=== PATIENT | female | born 1975 | race Caucasian/White ===

== ENCOUNTER 2017-08-26 11:10 | Emergency (ER) | payer OTHER ==
[~2017-08-26 11:10] MED LIST: ACYC200O6 PO; AMI25 PO; AZIT500T47 PO; BACDS PO; BUTA-303 PO; CAR350 PO; CARI250T10 PO; CEP500 PO; CEPH-1 PO; CEPH-13 PO; CEPH500C24 PO; CIP500 PO; CIT20 PO; CYCL-277 PO; CYCL30CA PO; DICL25TA9 PO; DOCU50CA8 PO; GAB300 PO; HYDR-319 PO; HYDR25CA83 PO; HYDR25SU34 RC; IBU800 PO; IBUP-1618; IBUP800T37 PO; LOR5 PO; LOR5/325 PO; PRE10 PO; PRE20 PO; PROM-110 PO; SULI200T84 PO
[2017-08-26 11:15] VITALS: BP 129/80
--- NOTE | 2017-08-26 11:21 | ER Report ---
History and Physical Time Seen By MD: 11:21 Hx. of Stated Complaint: PATIENT REPORTS THAT SHE IS HAVING NECK PAIN. SHE REPORTS A HISTORY OF CHRONIC NECK PAIN HPI/ROS CHIEF COMPLAINT: Migraine headache HISTORY OF PRESENT ILLNESS: This is a 42-year-old female who presents to the emergency department for a migraine headache and right-sided neck pain. Patient states that she had a procedure done she's had done multiple times by her pain doctor in [place] and ablation of some the nerve roots coming out of the cervical spine area. Patient states that it did help for several days and then Sunday she developed right-sided neck pain and a migraine headache which is the typical pattern for her. Patient states that since then she's had pretty severe migraine symptoms including intermittent nausea. Patient is wearing sunglasses in the room. Patient states she took her chronic pain medications at home and it has not helped her headaches. Patient denies fevers, chills, chest pain, shortness of breath, diarrhea or dysuria. No rashes. REVIEW OF SYSTEMS: Constitutional: No fever, no chills. Eyes: No discharge. ENT: No sore throat. Cardiovascular: No chest pain, no palpitations. Respiratory: No cough, no shortness of breath. Gastrointestinal: No abdominal pain, no vomiting. Genitourinary: No hematuria. Musculoskeletal: No back pain. Skin: No rashes. Neurological: As above. Allergies: Coded Allergies: paroxetine (Verified Allergy, Intermediate, RASH, 08/09/16) Home Meds Reported Medications Venlafaxine Hcl (EFFEXOR XR) 150 Mg Cap.er.24h, 150 MG PO QDAY 08/26/17 Hydrocodone/Acetaminophen (Lortab 10-325 mg Tablet) 1 Each Tablet, 1 TAB PO BID 10/24/15 Cyclobenzaprine Hcl (CYCLOBENZAPRINE HCL) 5 Mg Tablet, 10 MG PO PRN, #18 TAB 06/11/15 Ibuprofen (IBUPROFEN) 800 Mg Tablet, 1 TAB PO PRN 03/07/14 Discontinued Scripts Hydrocortisone Acetate (HYDROCORTISONE ACETATE) 25 Mg Supp.rect, 25 MG RC BID for 7 Days, #14 SUPP.RECT Prov:ROQUE CLOUD ELECTRIC TRACK SWITCH MAINTAINER 01/20/17 Promethazine Hcl (PROMETHAZINE HCL) 25 Mg Tablet, 25 MG PO Q4H Y for NAUSEA/ VOMITING, #14 TAB Prov:CLEO PARISI DO 08/09/16 Cephalexin Monohydrate (CEPHALEXIN) 500 Mg Cap, 500 MG PO TID for infection, # 30 CAP TAKE 1 CAPSULE BY MOUTH EVERY SIX HOURS Prov:CLEO PARISI DO 08/09/16 Past Medical/Surgical History Patient has a past medical and surgical history of migraines, asthma, constipation, urinary tract infections, plantar fasciitis, chronic back and neck pain, arthritis, anxiety, depression, neurotomy, tubal ligation, left knee scope, L5 and L6 fusion, septoplasty. Reviewed Nurses Notes: Yes Hx Smoking: Yes Smoking Status: Former Smoker Exposure to Second Hand Smoke?: Yes Hx Substance Use Disorder: No Hx Alcohol Use: Yes (RARE) Constitutional Vital Sign - Last 24 Hours 08/26/17 11:15 Temp 97.6 Pulse 77 Resp 24 B/P (MAP) 129/80 Pulse Ox 98 O2 Delivery Room Air Intake and Output 08/26/17 08/26/17 08/27/17 15:00 23:00 07:00 Intake Total 1000 ml Balance 1000 ml Physical Exam General Appearance: The patient is alert, has no immediate need for airway protection and no signs of toxicity. Eyes: Pupils equal and round no pallor or injection. ENT, Mouth: Mucous membranes are moist. Respiratory: There are no retractions, lungs are clear to auscultation. Cardiovascular: Regular rate and rhythm. Gastrointestinal: Abdomen is soft and non tender, no masses, bowel sounds normal. Neurological: Alert and oriented 4. Moving all extremities. Following all commands. No focal neuro deficits. Skin: Warm and dry, no rashes. Musculoskeletal: Neck is supple non tender. No C-spine tenderness. No erythema or cellulitis. 2 small bruises noted to the right side of the neck from her procedure. Extremities are nontender, nonswollen and have full range of motion. DIFFERENTIAL DIAGNOSIS: After history and physical exam differential diagnosis was considered for migraine. Medical Decision Making EKG/Imaging Imaging Location: [facility] Patient: Georgina Argueta : 1975 Visit/Account:[id number] Date of Sevice: 08/26/2017 CERVICAL SPINE 2 OR 3 VIEW Indication: chronic neck pain, getting worse Comparison: Cervical spine radiograph 08/01/2014. Findings: There are postoperative changes from anterior cervical discectomy and fusion at C5-6, stable. There is disc space narrowing at C4-5 and C6-7, slightly more advanced compared to the prior study. Facets are normal. IMPRESSION: 1. Postoperative changes ACDF C5-6, stable. 2. Mild to moderate cervical spondylosis, greatest at C4-5 and C6-7. This is slightly more advanced compared to 08/01/2014. Report Dictated By: Kevin Quach at 08/26/2017 12:44 PM [facility] [address] [address] Report E-Signed By: Kevin Quach at 08/26/2017 12:48 PM WSN:[id number] Electronically authenticated by: KEVIN QUACH ED Course/Re-evaluation Clinical Indication for ER IV: Hydration, IV Access ED Course The patient was admitted to room. A history physical were obtained. Differential diagnoses were considered. IV was started. A 1 L normal saline bolus was given. 50 mg IV Benadryl, 25 mg IV Phenergan and 30 mg IV Toradol were given. A cervical spine x-ray showing no acute abnormalities only chronic changes. She states she is feeling better after the IV bolus and medications. I did review the results with the patient. I instructed her to follow-up with her pain specialist and [place] within 5-7 days. Also told her that she needs to follow-up with her primary care provider area patient does understand that we do not treat chronic pain in the emergency department. Patient was in agreement with this particular had no other questions was discharged home. 08/26/2017 12:53:40 pm I did go in to reassess the patient. She is sitting up in her bed sunglasses off, she is tasting on her phone. Patient smiling. Patient states her pain is significantly improved. I did tell her that I'm waiting on the official report from radiology. Patient had no questions at this time. Decision to Disposition Date: Aug 26, 2017 Decision to Disposition Time: 13:03 Depart Departure Latest Vital Signs Vital Signs Date Time Temp Pulse Resp B/P (MAP) Pulse Ox O2 Delivery O2 Flow Rate FiO2 08/26/17 11:15 97.6 77 24 129/80 98 Room Air Impression: Primary Impression: Migraine headache Condition: Improved Disposition: HOME OR SELF-CARE Referrals: MP RAMIREZ DO (PCP) Patient Instructions: Chronic Neck Pain (DC), Migraine Headache (ED) Additional Instructions: Drink plenty of fluids. Get plenty of rest. Be sure to take your medications as prescribed. Follow-up with your pain specialist within 5-7 days. Follow-up with your primary care provider for any other needs. Return to the ED for worsening symptoms or any other concerns. Problem Qualifiers Primary Impression: Migraine headache Migraine type: unspecified Status migrainosus presence: without status migrainosus Intractability: not intractable Qualified Codes: G43.909 - Migraine, unspecified, not intractable, without status migrainosus ANDREW CAICEDO ELECTRIC TRACK SWITCH MAINTAINER-BC Aug 26, 2017 11:21
[2017-08-26] MEDS ORDERED: VENL150C61 PO (11:22)
[2017-08-26] MEDS ORDERED: KETOROLAC 30 MG/ML VIAL IVP ONE (11:30)
[2017-08-26] MEDS ORDERED: NS(*) 0.9% 1000 ML BAG 1,000 ML IV ONE (11:30)
[2017-08-26] MEDS ORDERED: PROMETHAZINE 25 MG/ML 1 ML AMP IVP ONE (11:30)
[2017-08-26] MEDS ORDERED: diphenhydrAMINE 50 MG/ML VIAL IVP ONE (11:30)
--- NOTE | 2017-08-26 16:46 | RADIOLOGY IMAGING REPORT ---
FACILITY: PATIENT NAME: Georgina Argueta : 1975 MR: [id number] V: [id number] EXAM DATE: ORDERING PHYSICIAN: ANDREW CAICEDO TECHNOLOGIST: Location: Patient: Georgina Argueta : 1975 Visit/Account:[id number] Date of Sevice: 08/26/2017 CERVICAL SPINE 2 OR 3 VIEW Indication: chronic neck pain, getting worse Comparison: Cervical spine radiograph 08/01/2014. Findings: There are postoperative changes from anterior cervical discectomy and fusion at C5-6, stabl e. There is disc space narrowing at C4-5 and C6-7, slightly more advanced compared to the prior study . Facets are normal. IMPRESSION: 1. Postoperative changes ACDF C5-6, stable. 2. Mild to moderate cervical spondylosis, greatest at C4-5 and C6-7. This is slightly more advanced c ompared to 08/01/2014. Report Dictated By: Kevin Matamoros at 08/26/2017 12:44 PM Report E-Signed By: Kevin Matamoros at 08/26/2017 12:48 PM WSN:[id number]
== END 2017-08-26 13:12 | disposition home or self-care (01) ==
LOC: ER 11:31
DX: G43.909 Migraine, unspecified, not intractable, without status migrainosus (principal)
CPT/HCPCS: 72040; 96361; 96374; 96375; 99284; J1200; J1885; J2550; J7030

== ENCOUNTER → 2017-10-03 | Outpatient (CLI) | payer OTHER ==
[~2017-10-03] MED LIST changes: +VENL150C61 PO
[2017-10-03 16:41] LABS: PLATELET COUNT, AUTOMATED 317 K/uL (150-450)
[2017-10-03 17:08] LABS: LDL CHOLESTEROL 96 mg/dl
== END ==
LOC: LAB 16:03
PROVIDERS: ATTEND Emergency Medicine
DX: M54.2 Cervicalgia (principal); R41.3 Other amnesia; E66.01 Morbid (severe) obesity due to excess calories
CPT/HCPCS: 36415; 82040; 82247; 82306; 82310; 82374; 82435; 82465; 82550; 82565; 82607; 82947; 83718; 84075; 84132; 84155; 84295; 84443; 84450; 84460; 84478; 84520; 85025; 86140; 86200; 86430

== ENCOUNTER → 2017-10-25 | Outpatient (CLI) | payer OTHER ==
[~2017-10-25] MED LIST changes: +GADOBENATE 529MG/1ML 15ML VIAL IVP ONE
--- NOTE | 2017-10-25 13:40 | RADIOLOGY IMAGING REPORT ---
FACILITY: [facility] PATIENT NAME: Georgina Argueta : 1975 MR: [id number] V: [id number] EXAM DATE: ORDERING PHYSICIAN: CATERINA DORSEY TECHNOLOGIST: Location: [facility] [place] Patient: Georgina Argueta : 1975 Visit/Account:[id number] Date of Sevice: 10/25/2017 EXAMINATION: MRI Brain without IV contrast MRI Brain with IV contrast History: Migraine COMPARISON STUDIES: none TECHNIQUE: Multi-planar, multi-sequence brain MRI was performed before and after IV gadolinium. Contrast: 15 mL of IV MultiHance FINDINGS: Paranasal sinuses / mastoid air cells: negative Calvarium and scalp: negative White matter: Negative. Ventricles / sulci / fissures: negative Masses / hemorrhage / midline shift: negative Extra-axial spaces: Normal for age. Enhancement pattern: negative Vascular structures: negative Sagittal midline structures: negative Orbits: negative Visualized upper neck: negative IMPRESSION: Normal MRI of the brain. There is no evidence of an intracranial mass, hemorrhage or acute ischemia. Report Dictated By: Gennaro Hernández MD at 10/25/2017 1:32 PM Report E-Signed By: Gennaro Hernández MD at 10/25/2017 1:37 PM WSN:[email or web address]
== END ==
LOC: MRI 00:35
PROVIDERS: ATTEND Emergency Medicine
DX: G43.909 Migraine, unspecified, not intractable, without status migrainosus (principal)
CPT/HCPCS: 70553; A9577

== ENCOUNTER 2017-12-04 13:00 | Outpatient (RCR) | payer OTHER ==
[~2017-12-04 13:00] MED LIST changes: -GADOBENATE 529MG/1ML 15ML VIAL IVP ONE
--- NOTE | 2017-12-10 15:51 | RADIOLOGY IMAGING REPORT ---
[place] [facility]: Georgina Argueta : 1975 MR: [id number] V: [id number] EXAM DATE: ORDERING PHYSICIAN: DARCY BARRIOS TECHNOLOGIST: Location: [facility] [place] Patient: Georgina Argueta : 1975 Visit/Account:[id number] Date of Sevice: 12/04/2017 Examination: GALLIUM WHOLE BODY Comparison: No relevant comparison study. History: Inflammation. Procedure: Standard anterior and posterior planar whole body imaging is acquired 24 and 72 hours foll owing the uneventful intravenous administration of 5.6 mCi Ga-67. FINDINGS: Physiologic tracer distribution to the salivary glands, liver, and breast tissue. Bone mary jo ow activity is within normal limits. On both the 24 hour and 72 hour images there is greater than expected activity throughout the ascendi ng and transverse colon. Equivocal small region of increased tracer accumulation along the superficial soft tissues of the lat eral distal left thigh. IMPRESSION: 1. Increased tracer activity throughout the ascending and transverse colon. While gallium does normal ly distribute to the colon, this is greater than expected and correlation with any evidence of coliti s is recommended. 2. Equivocal small region of apparent increased tracer activity along the superficial soft tissues of the lateral distal left thigh. This could be artifact although correlation with any evidence of supe rficial soft tissue infection/inflammation at this site is recommended. Report Dictated By: Gal Jamil MD at 12/10/2017 12:54 PM Report E-Signed By: Gal Jamil MD at 12/10/2017 3:47 PM WSN:[id number]
== END 2017-12-04 18:00 | disposition home or self-care (01) ==
LOC: NUC 13:00 → EDSTATUS 12-05 13:23
PROVIDERS: ATTEND Internal Medicine
DX: M25.50 Pain in unspecified joint (principal)
CPT/HCPCS: 78802; A9556

== ENCOUNTER 2018-02-13 04:04 | Day surgery (SDC) | payer OTHER ==
[~2018-02-13] VITALS: Ht 165.1 cm; Wt 118.8 kg
[~2018-02-13 04:04] MED LIST changes: +GOLYTE PO
[2018-02-13] MEDS ORDERED: PROPOFOL EMUL(*) 10MG/ML 20 ML 0 ML ONE (07:06)
[2018-02-13 07:31] VITALS: BP 99/74
[2018-02-13] MEDS ORDERED: MIDAZOLAM 2 MG/2 ML VIAL IVP PRN (07:50)
[2018-02-13] MEDS ORDERED: LIDOCAINE/SOD BICARB 8.4% SYR ID ONE (07:50)
[2018-02-13] MEDS ORDERED: NORMOSOL R SOLN(*) 1000 ML BAG 1,000 ML IV PRN (07:50)
[2018-02-13] MEDS ORDERED: PROPOFOL EMUL(*) 10MG/ML 20 ML 20 ML ONE ×2 (09:04→09:37)
[2018-02-13 09:19] VITALS: BP 80/62
--- NOTE | 2018-02-13 09:27 | Short(Outpt) Discharge Summary ---
Discharge Summary Reason for Hosp/Final Diag: (1) Family history of colon cancer Hospital Course & Plan: Colonoscopy completed without problems. Poor prep, no obvious abnormalities on areas of colon that could be observed. Recommend colonoscopy in 3 years. Departure Discharge to: Home, Self Care Discharge Instructions Home Meds Active Scripts Peg/Electrolytes (GOLYTELY SOLUTION) 4,000 Ml Soln, 1 GAL PO ONCE, #1 GAL 0 Refills Prov:JOSELITO FAIRCHILD MD 01/23/18 Reported Medications Venlafaxine Hcl (EFFEXOR XR) 150 Mg Cap.er.24h, 375 MG PO QDAY 08/26/17 Hydrocodone/Acetaminophen (Lortab 10-325 mg Tablet) 1 Each Tablet, 1 TAB PO BID 10/24/15 Cyclobenzaprine Hcl (CYCLOBENZAPRINE HCL) 5 Mg Tablet, 10 MG PO PRN, #18 TAB 06/11/15 Ibuprofen (IBUPROFEN) 800 Mg Tablet, 1 TAB PO PRN 03/07/14 Diet: Regular Activity: As Tolerated Special Instructions: Your colonoscopy was completed without any problems but your prep wasn't very good so unfortunately I couldn't adequately see some of your colon. I didn't find any cancer or polyps in the areas I was able to see. I recommend that you have another colonoscopy in the next 3 years due to your family history and due to the inadequate screening this time. JOSELITO FAIRCHILD MD Feb 13, 2018 09:27
[2018-02-13 09:30] VITALS: BP 84/64
[2018-02-13 09:42] VITALS: BP 87/60
[2018-02-13 09:44] VITALS: BP 84/69
== END 2018-02-13 09:58 | disposition home or self-care (01) ==
LOC: OR 04:04
PROVIDERS: ATTEND Surgery
DX: Z12.11 Encounter for screening for malignant neoplasm of colon (principal); Z80.0 Family history of malignant neoplasm of digestive organs
CPT/HCPCS: 00812; 45378; J2704

== ENCOUNTER 2018-05-01 15:14 | Emergency (ER) | payer OTHER ==
--- NOTE | 2018-05-01 15:22 | ER Report ---
History and Physical Time Seen By MD: 15:23 HPI/ROS CHIEF COMPLAINT: Laceration HISTORY OF PRESENT ILLNESS: 43-year-old female patient presents to emergency room with complaint of laceration to the right hand. Patient states she was washing dishes and was washing the inside of a class. She knows there was a chip missing out of it and as she was cleaning it she cut her hand on the chip. Patient states that she has no numbness or tingling. She did apply pressure to it. He states the glass did not break. She has not taken any medication for this. She states the last tetanus shot was in 2010. Allergies: Coded Allergies: guerda (Verified Allergy, Severe, TROUBLE BREATHING , 05/01/18) paroxetine (Verified Allergy, Intermediate, RASH, 05/01/18) Home Meds Active Scripts Cephalexin 500 Mg Tab (KEFLEX 500 MG TAB) 500 Mg Tablet, 500 MG PO Q6H, #20 TAB Prov:ROQUE CLOUD MANUAL TESTER 05/01/18 Reported Medications Gabapentin (GABAPENTIN) 300 Mg Capsule, 150 MG PO QDAY, CAPSULE 05/01/18 Venlafaxine Hcl (EFFEXOR XR) 150 Mg Cap.er.24h, 375 MG PO QDAY 08/26/17 Cyclobenzaprine Hcl (CYCLOBENZAPRINE HCL) 5 Mg Tablet, 10 MG PO PRN, #18 TAB 06/11/15 Ibuprofen (IBUPROFEN) 800 Mg Tablet, 1 TAB PO PRN 03/07/14 Discontinued Reported Medications Hydrocodone/Acetaminophen (Lortab 10-325 mg Tablet) 1 Each Tablet, 1 TAB PO BID 10/24/15 Past Medical/Surgical History Patient has a past medical history of migraines, asthma, constipation, frequent UTIs, endometriosis, plantar fasciitis, chronic neck pain, arthritis, back pain, fibromyalgia, marijuana use, depression. Patient has surgical history of a neurotomy, tubal ligation, left knee surgery, L5 L6 fusion, septoplasty. Patient has a family medical history of cancer, CAD, stroke, diabetes. Reviewed Nurses Notes: Yes Hx Smoking: Yes (6 CIGS/DAY 20 YEARS ) Smoking Status: Current: Every Day Smoker Exposure to Second Hand Smoke?: Yes Hx Substance Use Disorder: No Hx Alcohol Use: Yes (RARE) Constitutional Vital Sign - Last 24 Hours 05/01/18 05/01/18 05/01/18 15:23 16:23 17:04 Temp 98.0 Pulse 89 88 81 Resp 12 B/P (MAP) 133/89 103/64 (77) 103/77 (86) Pulse Ox 95 95 96 O2 Delivery Room Air Physical Exam General appearance: Alert no distress. Respiratory: Chest is non tender, lungs are clear to auscultation. Cardiac: Regular rate and rhythm. Skin: Patient has a 2.570 laceration to the right hand. It does go into the subcutaneous tissue. DIFFERENTIAL DIAGNOSIS: After history and physical exam differential diagnosis was considered for laceration, retained foreign body. Medical Decision Making EKG/Imaging Imaging INDICATION: laceration looking for fbo. Laceration on the dorsal side of the hand. DATE: 05/01/2018 4:36 PM. TECHNIQUE: HAND COMPLETE RIGHT COMPARISON: None FINDINGS: Normal alignment without evidence of fracture or dislocation. There may be a small soft tissue laceration on the dorsum of the hand. No radiopaque foreign body. IMPRESSION: No acute osseous abnormality and no radiopaque foreign body. Report Dictated By: Sandy Aparicio MD at 05/01/2018 4:36 PM Report E-Signed By: Sandy Aparicio MD at 05/01/2018 4:44 PM ED Course/Re-evaluation ED Course Patient was admitted to exam room, history and physical were obtained. Differential diagnoses were considered. On examination lungs are clear, heart is regular, patient does have a 2.5 cm laceration to the dorsal right hand. An x- ray was done to make sure there is no retained foreign bodies. That was negative. The wound was anesthetized, cleaned and repaired as described below. Patient will be discharged home. We will place her on antibiotics due to the location of the wound, specifically the hand. I discussed this with the patient who verbalized understanding and agreement with plan. Procedure: Laceration repair. Verbal consent was obtained from the patient. The 2.5 cm laceration on the dorsal side of the right hand was anesthetized in the usual fashion. The wound was scrubbed, draped and explored to its base with a gloved finger. There were no deep structures involved. No tendon injury was identified. The wound was repaired with 6 simple interrupted sutures using 4-0 Prolene material. The wound repair was simple. The procedure was performed by myself. Decision to Disposition Date: May 01, 2018 Decision to Disposition Time: 16:51 Depart Departure Latest Vital Signs Vital Signs Date Time Temp Pulse Resp B/P (MAP) Pulse Ox O2 Delivery O2 Flow Rate FiO2 05/01/18 17:04 81 103/77 (86) 96 05/01/18 15:23 98.0 12 Room Air Impression: Primary Impression: Hand laceration Condition: Improved Disposition: HOME OR SELF-CARE Referrals: CATERINA DORSEY MD (PCP) New Scripts Cephalexin 500 Mg Tab (KEFLEX 500 MG TAB) 500 Mg Tablet 500 MG PO Q6H, #20 TAB Prov: ROQUE CLOUD 05/01/18 Patient Instructions: Hand Laceration Additional Instructions: Keep wound dry for 48 hours. Follow up with your primary care provider in the next 7-10 days to have sutures removed. Monitor for signs of infection; redness, swelling, heat, discharge, increasing pain or red streaking. Take Tylenol or Ibuprofen as needed for pain. Return to the ER with any concerns. You may change dressing as needed. Problem Qualifiers Primary Impression: Hand laceration Encounter type: initial encounter Foreign body presence: without foreign body Laterality: right Qualified Codes: S61.411A - Laceration without foreign body of right hand, initial encounter ROQUE CLOUD May 01, 2018 15:22
[2018-05-01] MEDS ORDERED: GABA-549 PO (15:28)
--- NOTE | 2018-05-01 16:48 | RADIOLOGY IMAGING REPORT ---
FACILITY: [facility] [place] PATIENT NAME: Georgina Argueta : 1975 MR: [id number] V: [id number] EXAM DATE: [id number] ORDERING PHYSICIAN: ROQUE CLOUD TECHNOLOGIST: Location: [facility] Patient: Georgina Argueta : 1975 Visit/Account:[id number] Date of Sevice: 05/01/2018 INDICATION: laceration looking for fbo. Laceration on the dorsal side of the hand. DATE: 05/01/2018 4:36 PM. TECHNIQUE: HAND COMPLETE RIGHT COMPARISON: None FINDINGS: Normal alignment without evidence of fracture or dislocation. There may be a small soft ti ssue laceration on the dorsum of the hand. No radiopaque foreign body. IMPRESSION: No acute osseous abnormality and no radiopaque foreign body. Report Dictated By: Sandy Aparicio MD at 05/01/2018 4:36 PM Report E-Signed By: Sandy Aparicio MD at 05/01/2018 4:44 PM [id number]
[2018-05-01] MEDS ORDERED: CEPH500T7 PO (16:49)
[2018-05-01] MEDS ORDERED: DIPHTH/TETANUS/ACEL. PERTUSSIS IM ONLY ONE (17:00)
[2018-05-01 17:04] VITALS: BP 103/77
== END 2018-05-01 17:04 | disposition home or self-care (01) ==
LOC: ER 15:38
DX: S61.411A Laceration without foreign body of right hand, initial encounter (principal); W25.XXXA Contact with sharp glass, initial encounter
CPT/HCPCS: 90471; 90715; 99283

== ENCOUNTER 2018-08-25 19:15 | Emergency (ER) | payer OTHER, MEDICARE ==
[~2018-08-25 19:15] MED LIST changes: +CEPH500T7 PO; +GABA-549 PO
[2018-08-25 19:29] VITALS: BP 94/71
--- NOTE | 2018-08-25 19:40 | ER Report ---
History and Physical Time Seen By MD: 19:40 Hx. of Stated Complaint: patient states that she was taking a nap and woke up a few min ago and states that she can not hear out of her right ear HPI/ROS CHIEF COMPLAINT: Hearing problem HISTORY OF PRESENT ILLNESS: This is a 43-year-old female. She woke up from her nap this afternoon and could not hear out of her right ear. Tried washing it and flushing it with water and with peroxide, now fizzing or bubbling sensation in the ear. Some discomfort. No fevers or chills. No prior ear problems. She does use Q-tips. Allergies: Coded Allergies: guerda (Verified Allergy, Severe, TROUBLE BREATHING , 05/01/18) paroxetine (Verified Allergy, Intermediate, RASH, 05/01/18) Home Meds Active Scripts Cephalexin 500 Mg Tab (KEFLEX 500 MG TAB) 500 Mg Tablet, 500 MG PO Q6H, #20 TAB Prov:ROQUE CLOUD [employer] PARALE[employer] 05/01/18 Reported Medications Gabapentin (GABAPENTIN) 300 Mg Capsule, 150 MG PO QDAY, CAPSULE 05/01/18 Venlafaxine Hcl (EFFEXOR XR) 150 Mg Cap.er.24h, 375 MG PO QDAY 08/26/17 Cyclobenzaprine Hcl (CYCLOBENZAPRINE HCL) 5 Mg Tablet, 10 MG PO PRN, #18 TAB 06/11/15 Ibuprofen (IBUPROFEN) 800 Mg Tablet, 1 TAB PO PRN 03/07/14 Reviewed Nurses Notes: Yes Hx Smoking: Yes (6 CIGS/DAY 20 YEARS ) Smoking Status: Current: Every Day Smoker Exposure to Second Hand Smoke?: Yes Hx Substance Use Disorder: No (CBD/MARIJUANA FOR PAIN LAST 02/02/2018) Hx Alcohol Use: Yes (RARE) Constitutional Vital Sign - Last 24 Hours 08/25/18 19:29 Temp 98.3 Pulse 89 Resp 18 B/P (MAP) 94/71 Pulse Ox 93 O2 Delivery Room Air Physical Exam General Appearance: Alert, no acute distress Eyes: Pupils equal and round no injection. ENT: Normal oral mucosa. Moist mucous membranes. Nasal mucosa normal. Her right tympanic membrane is normal. There appears to be possible cotton material in the ear on that right side. The left side is normal. Neck: Neck is supple and non tender. Skin: No rashes or lesions. DIFFERENTIAL DIAGNOSIS: After history and physical exam differential diagnosis was considered for difficulty hearing, likely foreign material in the ear, likely cotton from the top of the Q-tip Medical Decision Making ED Course/Re-evaluation ED Course Irrigation was performed, concave out of the ear. Reevaluation shows a normal canal and TM. She can hear again. Decision to Disposition Date: Aug 25, 2018 Decision to Disposition Time: 21:29 Depart Departure Latest Vital Signs Vital Signs Date Time Temp Pulse Resp B/P (MAP) Pulse Ox O2 Delivery O2 Flow Rate FiO2 08/25/18 19:29 98.3 89 18 94/71 93 Room Air Impression: Primary Impression: Ear foreign body Condition: Stable Disposition: HOME OR SELF-CARE Referrals: CATERINA DORSEY MD (PCP) Patient Instructions: Ear Foreign Body (ED) Problem Qualifiers Primary Impression: Ear foreign body Encounter type: initial encounter Laterality: right Qualified Codes: T16.1XXA - Foreign body in right ear, initial encounter POPPY ROBIN MD Aug 25, 2018 19:40
== END 2018-08-25 21:35 | disposition home or self-care (01) ==
LOC: ER 19:44
DX: T16.1XXA Foreign body in right ear, initial encounter (principal)
CPT/HCPCS: 99282